=== PATIENT | female | born 1980 | race Caucasian/White ===

== ENCOUNTER → 2019-05-06 12:57 | Outpatient (CLI) | payer OTHER, SELFPAY ==
--- NOTE | 2019-05-06 | DI.CT.S_ITS ---
PROCEDURE: CT ABDOMEN PELVIS W CON INDICATIONS: Right lower quadrant pain TECHNIQUE: After the administration of oral and intravenous contrast, 5 mm thick sections acquired from the diaphragms to the symphysis. 5 mm thick coronal and sagittal reformats were performed. For radiation dose reduction, the following was used: automated exposure control, adjustment of mA and/or kV according to patient size. COMPARISON: [facility], , RENAL AND/OR RETOPERITONEAL/PELVIC, 05/23/2005, 9:47. FINDINGS: Image quality: Diagnostic. ABDOMEN: Lung bases: Lung bases are clear. Heart size is normal. Solid organs: Subcentimeter foci of low attenuation are seen along the superior margin of the left hepatic lobe just underlying the diaphragm, which are too small to adequately characterize, but most likely represent simple cysts. The liver is otherwise unremarkable with the exception of slight hypodensity when compared to the spleen. The spleen is within normal limits. The adrenals and kidneys are essentially unremarkable. No hydronephrosis is identified. There may be an extrarenal pelvis on the right. Small right parenchymal renal cysts are incidentally noted. No definite solid renal lesion is evident. The pancreas is within normal limits. Peritoneum and bowel: The stomach is unremarkable. The small bowel loops are nondilated. A moderate to large amount of residual stool is identified within the colon. Colon is not well evaluated on this examination related to patchy areas of colonic decompression. What is felt to represent the appendix is noted to be enlarged and measures up to approximately 10 mm in diameter (image 58, series 2). A small fluid collection at the base of the appendix is located adjacent to the cecum is present that measures up to approximately 1.3 cm in diameter (image 65, series 2). This fluid collection is separate from the right ovary, which is noted to be positioned significantly more posterior. There is edema within the mesentery adjacent to the appendix. Small reactive lymph nodes are identified. Nodes and vessels: No retroperitoneal or mesenteric adenopathy. Aorta and inferior vena cava are normal in caliber. Bones: No acute fractures suspicious osseous lesion is evident. PELVIS: Genitourinary: Bladder wall thickness is normal. The uterus is slightly prominent in size. The left ovary is normal in size. The right ovary is borderline prominent, which appears to be related to a peripherally enhancing collapsing right ovarian cyst/follicle that measures up to 1.6 cm in diameter. A small amount of fluid is present adjacent to the right ovary. Miscellaneous: No inguinal hernias or adenopathy. A small amount of free fluid is seen within the pelvis. There is no loculated fluid collection or free air. Bones: No suspicious bony lesions. No vertebral body compression fractures. IMPRESSION: 1. Findings are compatible with acute appendicitis. 2. Small fluid collection at the base of the appendix is suspicious for a small abscess, which could potentially be located within the lumen of the appendix. However, a small contained perforation is difficult to exclude. 2. Small amount of free fluid within the pelvis is likely reactive. There is no free air. 4. Collapsing right ovarian cyst/follicle. 5. Probable constipation. No bowel obstruction. 6. Questionable mild hepatic steatosis. Note: Acute pertinent findings were discussed with the Dr. Altamirano at approximately 1500 hours (PST) on 05/06/19. Dictated by: Jama Mao M.D. on 05/06/2019 at 13:31 Approved by: Jama Mao M.D. on 05/06/2019 at 14:02
[2019-05-06 13:57] LABS: Add Manual Diff / Slide Review NO; Basophils Absolute Auto 0 /uL (0-100); Basophils Percent Auto 0.5 % (0-2); Eosinophils Absolute Auto 200 /uL (0-450); Eosinophils Percent Auto 2.8 % (2-4); Hematocrit 31.6 % (36-46); Lymphocytes Absolute Auto 1400 /uL (1100-4500); Lymphocytes Percent Auto 19.3 % (25-40); Mean Corpuscular HGB Conc 31.7 % (30-36); Mean Corpuscular Hemoglobin 21.4 PG (26-34); Mean Corpuscular Volume 67.5 fL (80-100); Monocytes Absolute Auto 800 /uL (0-900); Monocytes Percent Auto 10.2 % (3-14); Neutrophils Absolute Auto 5000 /uL (1500-7000); Neutrophils Percent Auto 67.2 % (50-75); Platelet Count 294 X10^3/uL (150-400); Red Blood Cell Count 4.68 X10^6/uL (4.0-5.2); Red Cell Distribution Width 18.9 % (11.6-14.8); White Blood Cell Count 7.4 X10^3/uL (4.5-11.0)
[2019-05-06 14:12] LABS: Anisocytosis 1+; Poikilocytosis 1+
== END ==
PROVIDERS: PCP Family Medicine; Referring Provider Family Medicine; Visit Provider Family Medicine
DX: R10.31 Right lower quadrant pain (principal); N83.201 Unspecified ovarian cyst, right side; N28.1 Cyst of kidney, acquired
CPT/HCPCS: 36415; 74177; 85025; Q9967

== ENCOUNTER 2019-05-06 17:36 | Observation (INO) | payer OTHER, SELFPAY ==
[2019-05-06] VITALS (11 sets, daily range): BP systolic 112–136; BP diastolic 71–88; PULSE 70–89; RESP 10–21; TEMP 36.3–36.8; O2SAT 96–100; BMI 21.2
--- NOTE | 2019-05-06 | PATH_ITS ---
[facility] Accession Number: [id number] . 01 Material submitted: . appendix - APPENDIX . 01 Clinical history: . APPENDICITIS, SENT FROM PCP . 02 Diagnosis: Appendix, Appendectomy: Acute appendicitis and serositis with a small focus of mesothelial inclusion cysts at the appendiceal tip. . [facility] 05/09/2019 1211 Local . 02 Electronically signed: . Keturah Lowe MD, Pathologist NPI- [id number] . 01 Gross description: . Received in formalin, labeled appendix, is a piece of cecum (3.0 x 3.0 x 2.2 cm) with an attached intact appendix (length-6.2 cm, diameter-1.0 cm) with a stapled resection margin. The serosa is yost-skinner, smooth and dull, and focally covered in yost friable exudate. The cecal mucosa is skinner, smooth, shiny and unremarkable. The appendiceal lumen contains skinner paste-like material. The wall is up to 0.3 cm thick. No nodules, masses or lesions are identified. The resection margin is inked blue. Section code; (A1) resection margin, bilingual inside sales representative perpendicular section; (A2) appendix, bilingual inside sales representative serial sections; (A3) one-half of the bivalved tip. ([id number]) /MRV 05/08/2019 1243 Local . 02 Pathologist provided ICD-10: E03.9, K35.30 . 02 CPT . 299744 Performed at: 01 [facility] [address] [facility], [place], [place] [id number] MD Marco Antonio Black MD Phone: [phone] Performed at: 02 [facility] [place] [address] [place] [id number] MD Margo Michael MD Phone: [phone]
--- NOTE | 2019-05-06 15:57 | ED_ITS ---
HPI - General Adult General Chief complaint: Abdominal Pain Stated complaint: appendicitis, sent from pcp Time Seen by Provider: 05/06/19 15:54 Source: patient Mode of arrival: Ambulatory Limitations: no limitations History of Present Illness HPI narrative: 38-year-old otherwise healthy female here with a diagnosis of appendicitis. Patient states that since Sunday she has had right lower quadrant abdominal pain. No vaginal bleeding. No urinary symptoms. No change in her bowel habits. Some nausea but no vomiting. Had some chills yesterday but none today. States she actually feels better today than what she has a past couple days. Contacted her primary doctor who evaluated her in the emergency departme nt. Had an outpatient CBC which showed no leukocytosis. This was followed by a CT scan of the abdomen pelvis which is concerning for a acute appendicitis. She was sent to the emergency department. Related Data Home Medications Medication Instructions Recorded Confirmed levothyroxine See Rx Instructions .ROUTE .COMPLEX 05/06/19 05/06/19 Allergies Allergy/AdvReac Type Severity Reaction Status Date / Time No Known Allergies Allergy Verified 05/06/19 17:40 Review of Systems Constitutional Constitutional: Denies fever(s) and Denies headache(s) ENT Ears, Nose, Mouth, and Throat: Denies headache(s) Cardiovascular Cardiovascular: Denies chest pain and Denies dyspnea Respiratory Respiratory: Denies dyspnea Gastrointestinal Gastrointestinal: Reports abdominal pain, Reports nausea and Denies vomiting Genitourinary Genitourinary: Denies dysuria Musculoskeletal Musculoskeletal: Denies myalgias and Denies arthralgias Integumentary/Breasts Skin/Breast: Denies lesions and Denies rash Neurologic Neurologic: Denies behavioral changes and Denies headache(s) Psychiatric Psychiatric: Denies behavioral changes Hematologic/Lymphatic Hematologic/Lymphatic: Denies easy bleeding and Denies easy bruising Patient History Medical History Hypothyroid (Acute) Social History Smoking Status: Never smoker Exam Initial Vital Signs Initial Vital Signs: Vital Signs Temperature 98.3 F 05/06/19 16:09 Pulse Rate 88 05/06/19 16:09 Respiratory Rate 16 05/06/19 16:09 Blood Pressure 131/88 05/06/19 16:09 Pulse Oximetry 100 05/06/19 16:09 Const General: cooperative, comfortable, well developed and well groomed Limitations: mental status not altered HENMT Head: normal to inspection and normocephalic Resp Effort & Inspection: normal respiratory effort Auscultation: clear to auscultation bilaterally Cardio Rate: regular rate Rhythm: regular rhythm GI Palpation: soft and tender (Right lower quadrant) Skin Lesions: no lesions Rashes: no rashes Neuro General: alert and awake Extrem General: normal to inspection and capillary refill normal Scores GCS Raymundo coma scale eye opening: Spontaneous Harrison coma scale verbal response: Orientated Raymundo coma scale motor response: Obey commands Harrison coma scale total score: 15 Course Orders Ordered: ED Orders 05/06/19 16:35 Basic Metabolic Panel Stat Test Serum,Qual Stat 05/06/19 17:34 Consult to General Surgery Routine Sodium Chloride (Normal Saline 0.9%) 1,000 mls @ 125 mls/hr IV CONT OLIVIA Last Admin: 05/06/19 17:58 Dose: 125 mls/hr Documented by: YADIRA Morphine Sulfate (Morphine) 2 mg IV Q4HR PRN PRN Reason: Pain, Mild (1-3) Last Admin: 05/06/19 17:56 Dose: 2 mg Documented by: YADIRA Ondansetron HCl (Zofran) 4 mg IV Q4HR PRN PRN Reason: Nausea And Vomiting Last Admin: 05/06/19 17:57 Dose: 4 mg Documented by: YADIRA Discontinued Medications Piperacillin/Tazobactam/Dextrose (Zosyn) 3.375 gm in 50 mls @ 100 mls/hr IV NOW ONE Stop: 05/06/19 17:46 Last Infusion: 05/06/19 19:19 Dose: 0 mls/hr Documented by: Admin: 05/06/19 17:56 Dose: 100 mls/hr Documented by: CAMELIAONER Vital Signs Vital signs: Vital Signs - 8 hr 05/06/19 16:09 Temperature 98.3 F Pulse Rate 88 Respiratory Rate 16 Blood Pressure 131/88 Pulse Oximetry 100 Medical Decision Making Medical Records Medical records reviewed: Yes I reviewed the patient's medical records. Lab Data Lab results reviewed: Yes I reviewed the patient's lab results. Result diagrams: 05/06/19 16:35 Labs: Lab Results 05/06/19 05/06/19 Range/Units 16:35 16:35 Sodium 139 (137-145) mmol/L Potassium 3.8 (3.4-5.1) mmol/L Chloride 100 (98-107) mmol/L Carbon Dioxide 28 (22-32) mmol/L BUN 13 (7-17) mg/dL Creatinine 0.60 (0.52-1.04) mg/dL Estimated GFR > 60.0 (>60) mL/min BUN/Creatinine Ratio 21.7 (6-22) Glucose 107 H (70-100) mg/dL Calcium 9.5 (8.4-10.2) mg/dL Serum , Qual Negative (Negative) Imaging Data CT scan - abdomen/pelvis: Radiologist's Impression: [address] [address] [address] Scan Report Signed Patient: Meeta Grace LMR#: [id number] : 1980Acct:[id number] Age/Sex: 38 / FDate of Service: 05/06/19 Loc: CT Accession Number: [id number] Procedure: CT abdomen pelvis w con Ordering Provider: Sarahy Altamirano MD PROCEDURE: CT ABDOMEN PELVIS W CON INDICATIONS: Right lower quadrant pain TECHNIQUE: After the administration of oral and intravenous contrast, 5 mm thick sections acquired from the diaphragms to the symphysis. 5 mm thick coronal and sagittal reformats were performed. For radiation dose reduction, the following was used: automated exposure control, adjustment of mA and/or kV according to patient size. COMPARISON: [facility], , RENAL AND/OR RETOPERITONEAL/PELVIC, 05/23/2005, 9:47. FINDINGS: Image quality: Diagnostic. ABDOMEN: Lung bases: Lung bases are clear. Heart size is normal. Solid organs: Subcentimeter foci of low attenuation are seen along the superior margin of the left hepatic lobe just underlying the diaphragm, which are too small to adequately characterize, but most likely represent simple cysts. The liver is otherwise unremarkable with the exception of slight hypodensity when compared to the spleen. The spleen is within normal limits. The adrenals and kidneys are essentially unremarkable. No hydronephrosis is identified. There may be an extrarenal pelvis on the right. Small right parenchymal renal cysts are incidentally noted. No definite solid renal lesion is evident. The pancreas is within normal limits. Peritoneum and bowel: The stomach is unremarkable. The small bowel loops are nondilated. A moderate to large amount of residual stool is identified within the colon. Colon is not well evaluated on this examination related to patchy areas of colonic decompression. What is felt to represent the appendix is noted to be enlarged and measures up to approximately 10 mm in diameter (image 58, series 2). A small fluid collection at the base of the appendix is located adjacent to the cecum is present that measures up to approximately 1.3 cm in diameter (image 65, series 2). This fluid collection is separate from the right ovary, which is noted to be positioned significantly more posterior. There is edema within the mesentery adjacent to the appendix. Small reactive lymph nodes are identified. Nodes and vessels: No retroperitoneal or mesenteric adenopathy. Aorta and inferior vena cava are normal in caliber. Bones: No acute fractures suspicious osseous lesion is evident. PELVIS: Genitourinary: Bladder wall thickness is normal. The uterus is slightly prominent in size. The left ovary is normal in size. The right ovary is borderline prominent, which appears to be related to a peripherally enhancing collapsing right ovarian cyst/follicle that measures up to 1.6 cm in diameter. A small amount of fluid is present adjacent to the right ovary. Miscellaneous: No inguinal hernias or adenopathy. A small amount of free fluid is seen within the pelvis. There is no loculated fluid collection or free air. Bones: No suspicious bony lesions. No vertebral body compression fractures. IMPRESSION: 1. Findings are compatible with acute appendicitis. 2. Small fluid collection at the base of the appendix is suspicious for a small abscess, which could potentially be located within the lumen of the appendix. However, a small contained perforation is difficult to exclude. 2. Small amount of free fluid within the pelvis is likely reactive. There is no free air. 4. Collapsing right ovarian cyst/follicle. 5. Probable constipation. No bowel obstruction. 6. Questionable mild hepatic steatosis. Note: Acute pertinent findings were discussed with the Dr. Altamirano at approximately 1500 hours (PST) on 05/06/19. Dictated by: Jama Mao M.D. on 05/06/2019 at 13:31 Approved by: Jama Mao M.D. on 05/06/2019 at 14:02 [facility] Narrative Medical decision making narrative: CT scan included in this note is for reference purposes only. It was ordered by her primary provider. Discussed the case with Dr. Conrad with General surgery who stated we could admit the patient and she would come and see her with surgery scheduled later this evening. Discussed the plan the diagnosis of the patient. She expressed understanding and agreement. Discharge Plan Departure Patient Disposition: Admitted as Observation Clinical Impression: Acute appendicitis Qualifiers: Acute appendicitis type: with localized peritonitis Appendicitis gangrene pre sence: without gangrene Appendicitis perforation presence: without perforation Appendicitis abscess presence: without abscess Qualified Code(s): K35.30 - Acute appendicitis with localized peritonitis, without perforation or gangrene Admit Date/Time: 05/06/19 17:36 Admit Provider: Nakia Conrad
[2019-05-06 16:57] LABS: BUN Creatinine Ratio 21.7 (6-22); Blood Urea Nitrogen 13 mg/dL (7-17); Calcium 9.5 mg/dL (8.4-10.2); Carbon Dioxide 28 mmol/L (22-32); Estimated Glomerular Filt Rate > 60.0 mL/min (>60); Glucose 107 mg/dL (70-100); HEMOLYSIS < 15 (0-50); Potassium 3.8 mmol/L (3.4-5.1); Sodium 139 mmol/L (137-145)
[2019-05-06 17:01] LABS: Chloride 100 mmol/L (98-107)
[2019-05-06 17:07] LABS: Pregnancy Test Serum,Qual Negative (Negative)
[2019-05-06] MEDS: PIPERACILLIN-TAZO 3.375 GM/50 ML FROZ.PIGGY IV (17:56)
[2019-05-06] MEDS: MORPHINE 2 MG/ML INJ IV ×2 (17:56→23:43)
[2019-05-06] MEDS: ONDANSETRON 4 MG/2 ML INJ IV (17:57)
[2019-05-06] MEDS: SODIUM CHLORIDE 0.9% 1,000 ML 125 ML IV (17:58)
--- NOTE | 2019-05-06 18:59 | P.HP_ITS ---
History of Present Illness History of Present Illness Date Patient Seen: 05/06/19 Time Patient Seen: 18:59 Chief complaint: appendicitis, sent from pcp Narrative: This is a 38-year-old woman who started having periumbilical pain about 48 hours ago. She said when the pain started it was sort of an ache, and she had no appetite from Sunday on word. The pain became more severe and more focal in her lower abdomen and right lower quadrant. She had a fever on Sunday, but has gradually been feeling better over the last 24 hours or so. Today she went to see her primary doctor who ordered a CT scan which revealed appendicitis and a focal periappendiceal abscess. She denies dysuria, nausea, vomiting, diarrhea, constipation. ROS: Thirteen system review is otherwise negative other than as mentioned below and in HPI. PE: GENERAL: Alert, relatively comfortable. Appears stated age. Answers questions promptly and appropriately. Vital signs noted. HENT: Normocephalic, atraumatic. Hearing intact. Oral mucosa is pink and moist. EYES: Conjunctiva pink, sclera white, no periorbital swelling. CARDIOVASCULAR: Regular rate. No pedal edema. RESPIRATORY: Non-tachypneic, breathing comfortably on room air. GASTROINTESTINAL: Abdomen soft and non-distended; Focal TTP lower mid abddomen and RLQ GENITALURINARY: No flank tenderness. MUSCULOSKELETAL: Equal tone and mass bilaterally. SKIN: Warm, dry, soft, appropriate color for ethnicity. No other lesions, ra shes, or wounds. NEURO: Alert and Oriented X 3. No gross sensory deficits, or cognitive issues. PSYCH: Appropriate affect and mood. Patient History Medical History (Updated 05/06/19 @ 19:04 by Nakia Conrad MD) Hypothyroid (Acute) Family & Social History Safety & Behavioral: Feels Safe in Current Yes Environment Been Physically Hurt or No Threatened By a Person Tobacco & Substance use: Smoking Status Never smoker alcohol intake frequency holiday/special occasion Substance Use Type does not use Meds Home Medications and Allergies Home Medications Medication Instructions Recorded Confirmed Type levothyroxine See Rx Instructions .ROUTE .COMPLEX 05/06/19 05/06/19 History Allergies Allergy/AdvReac Type Severity Reaction Status Date / Time No Known Allergies Allergy Verified 05/06/19 17:40 Exam Vital Signs (past 8 hours): - 05/06/19 16:09 05/06/19 18:19 Temperature 98.3 F Pulse Rate 88 87 Respiratory Rate 16 Blood Pressure 131/88 Blood Pressure [Left Arm] 129/83 Pulse Oximetry 100 100 Oxygen Delivery Method Room Air Objective Imaging CT scan - abdomen: Radiologist's impression: [address] [address] [address] Scan Report Signed Patient: Meeta Grace LMR#: [id number] : 1980Acct:[id number] Age/Sex: 38 / FDate of Service: 05/06/19 Loc: CT Accession Number: [id number] Procedure: CT abdomen pelvis w con Ordering Provider: Sarahy Altamirano MD PROCEDURE: CT ABDOMEN PELVIS W CON INDICATIONS: Right lower quadrant pain TECHNIQUE: After the administration of oral and intravenous contrast, 5 mm thick sections acquired from the diaphragms to the symphysis. 5 mm thick coronal and sagittal reformats were performed. For radiation dose reduction, the following was used: automated exposure control, adjustment of mA and/or kV according to patient size. COMPARISON: [facility], , RENAL AND/OR RETOPERITONEAL/PELVIC, 05/23/2005, 9:47. FINDINGS: Image quality: Diagnostic. ABDOMEN: Lung bases: Lung bases are clear. Heart size is normal. Solid organs: Subcentimeter foci of low attenuation are seen along the superior margin of the left hepatic lobe just underlying the diaphragm, which are too small to adequately characterize, but most likely represent simple cysts. The liver is otherwise unremarkable with the exception of slight hypodensity when compared to the spleen. The spleen is within normal limits. The adrenals and kidneys are essentially unremarkable. No hydronephrosis is identified. There may be an extrarenal pelvis on the right. Small right parenchymal renal cysts are incidentally noted. No definite solid renal lesion is evident. The pancreas is within normal limits. Peritoneum and bowel: The stomach is unremarkable. The small bowel loops are nondilated. A moderate to large amount of residual stool is identified within the colon. Colon is not well evaluated on this examination related to patchy areas of colonic decompression. What is felt to represent the appendix is noted to be enlarged and measures up to approximately 10 mm in diameter (image 58, series 2). A small fluid collection at the base of the appendix is located adjacent to the cecum is present that measures up to approximately 1.3 cm in diameter (image 65, series 2). This fluid collection is separate from the right ovary, which is noted to be positioned significantly more posterior. There is edema within the mesentery adjacent to the appendix. Small reactive lymph nodes are identified. Nodes and vessels: No retroperitoneal or mesenteric adenopathy. Aorta and inferior vena cava are normal in caliber. Bones: No acute fractures suspicious osseous lesion is evident. PELVIS: Genitourinary: Bladder wall thickness is normal. The uterus is slightly prominent in size. The left ovary is normal in size. The right ovary is borderline prominent, which appears to be related to a peripherally enhancing collapsing right ovarian cyst/follicle that measures up to 1.6 cm in diameter. A small amount of fluid is present adjacent to the right ovary. Miscellaneous: No inguinal hernias or adenopathy. A small amount of free fluid is seen within the pelvis. There is no loculated fluid collection or free air. Bones: No suspicious bony lesions. No vertebral body compression fractures. IMPRESSION: 1. Findings are compatible with acute appendicitis. 2. Small fluid collection at the base of the appendix is suspicious for a small abscess, which could potentially be located within the lumen of the appendix. However, a small contained perforation is difficult to exclude. 2. Small amount of free fluid within the pelvis is likely reactive. There is no free air. 4. Collapsing right ovarian cyst/follicle. 5. Probable constipation. No bowel obstruction. 6. Questionable mild hepatic steatosis. Note: Acute pertinent findings were discussed with the Dr. Altamirano at approximately 1500 hours (PST) on 05/06/19. Dictated by: Jama Mao M.D. on 05/06/2019 at 13:31 Approved by: Jama Mao M.D. on 05/06/2019 at 14:02 Labs Result Diagrams: 05/06/19 16:35 Labs: Laboratory Results - last 24 hr 05/06/19 05/06/19 16:35 16:35 Sodium 139 Potassium 3.8 Chloride 100 Carbon Dioxide 28 BUN 13 Creatinine 0.60 Estimated GFR > 60.0 BUN/Creatinine Ratio 21.7 Glucose 107 H Calcium 9.5 Serum , Qual Negative Assessment & Plan Assessment and plan (1) Hypothyroid: Current visit: Yes Status: Acute (2) Acute appendicitis: Qualifiers: Acute appendicitis type: with localized peritonitis Appendicitis abscess presence: without abscess Appendicitis gangrene presence: without ga ngrene Appendicitis perforation presence: without perforation Qualified Code(s): K35.30 - Acute appendicitis with localized peritonitis, without per foration or gangrene Current visit: Yes Status: Acute Assessment & Plan narrative: This is a 38-year-old woman with acute appendicitis. I discussed with the patient and her at length the risks and benefits of antibiotic treatment versus surgery. She may have a small abs cess around the appendix, which may necessitate drain placement. Risk of bleeding, infection, damage to nearby structures, need for additional procedures, need for open surgery, hernia formation, recurrence of abscess, anastomotic leak, risk of anesthesia were discussed. The patient desires to pro ceed with her appendectomy this evening. She had a handful of Sudanese fries around 2:30 p.m. today so we will likely plan on going to the operating room after 8:30 p.m. this evening. Plan: NPO IV fluid IV Zosyn Laparoscopic possible open appendectomy this evening Time Spent With Patient Time with patient: 25 - 35 minutes Quality VTE Deep Vein Thrombosis/Pulmonary Embolism Present on Admission: No
--- NOTE | 2019-05-06 19:36 | PC.NURSE ---
normal saline to continue in acute care
[2019-05-06] MEDS: ACETAMINOPHEN 325 MG TABLET 975 MG PO (20:32)
[2019-05-06] MEDS: GABAPENTIN 300 MG CAPSULE PO (20:33)
[2019-05-06] MEDS: SCOPOLAMINE 1 PATCH TOP (20:33)
[2019-05-06] MEDS: CELECOXIB 200 MG CAPSULE 400 MG PO (20:33)
[2019-05-06] MEDS: LACTATED RINGERS 1,000 ML 42 ML IV ×2 (20:35→22:10)
--- NOTE | 2019-05-06 21:54 | SUR.OPER ---
Supine on padded OR bed, head on pillow, left arm padded and tucked at side by surgeon, legs uncrossed, safety belt at thigh, tape over blanket over lower legs .
[2019-05-06] MEDS: BUPIVACAINE 0.25% W/ EPI 30 ML VIAL INJ (21:58)
--- NOTE | 2019-05-06 22:49 | PM.OP.1 ---
Operative Date/Time/Diagnoses Date of procedure: 05/06/19 Time of procedure: 22:49 Pre-op diagnosis: acute appendicitis Post-op diagnosis: same Procedure & Clinicians Procedure: laparoscopic appendectomy with partial cecectomy Same procedure as scheduled: Yes Indications: Acute appendicitis with enlarged base of appendix and distal cecum Surgeon: Nakia Conrad Click Yes if Unassisted: Yes Anesthesia Type: General Operative Notes Findings: Thickened and dilated appendix, blood fluid present, no signs of perforation; thickened cecum at base of appendix Closure Type: primary Specimen(s): other (appendix and cuff of cecum) Estimated Blood Loss (mL): 2 Blood products transfused: none Procedure in detail: The patient was brought into the operating room and placed supine on the OR table. Sequential compression devices were placed on both legs and turned on. Appropriate perioperative antibiotics were given prior to the start of surgery. General anesthesia was induced the patient was intubated. Ricardo catheter was placed in sterile fashion. The abdomen was prepped and draped in sterile fashion. Surgical time-out was conducted. Local anesthetic was injected under the skin just superior to the umbilicus and a 5 mm vertical incision was made at this site. The umbilical stalk was grasped with a Fco and elevated. A Veress needle was passed through the fascia into proper position. The position was tested with a saline drop test which was appropriate for intra-abdominal Veress needle placement. The abdomen was then insufflated in the usual fashion. Once insufflated to 15 mm Hg the Veress needle was removed and a 5 mm optical trocar was placed under direct vision using a 5 mm 30 degree scope. Once the camera was inside the abdomen I took a look around. There was no injury from port placement. Two additional ports were placed in a similar fashion in the suprapubic midline and left lower quadrant. The umbilical port was upsized to a 10-12 mm port. The patient was placed in Trendelenburg position with the right side up. The cecum was exposed and the appendix was seen diving posteriorly behind the cecum. There was some serosanguinous fluid around the cecum in the pelvis, but no pus, stool, or abscess. The appendix was grasped and elevated, it was thickened and dilated. There was no sign of perforation. There was a thick mesoappendix which was adherent to the distal ileum. Tedious dissection was undertaken to divided with good hemostasis. We did not have a LigaSure, so I used monopolar cautery and clips to ligate and divide the appendiceal artery. Once the appendix was well isolated I elevated it and palpated the cecum with an atraumatic bowel clamp. The cecum was quite thickened at the base of the appendix, with an area of about 2-3 cm which had a very thick and mass like quality. I was able to place a blue load stapler beyond this across the cecum, without interrupting the ileocecal valve or impinging on it. Two loads of a 60 mm blue load stapler were then used to staple across the cecum distal to this thickened area. Once the appendix and cuff of cecum were freed, the specimen was placed in an Endo-Catch bag and brought through the umbilical port and passed off the table for pathology. Attention was then turned back to the staple line on the cecum and clips on the mesoappendix. This staple line on the cecum was hemostatic, and the ileum was free and away from the staple line. There is no oozing or bleeding seen from the clipped vessels in the mesoappendix. Omentum was then brought down to cover the cecal staple line remaining mesoappendix. I took 1 final look around the abdomen. There was no welling up of blood or fluid. The bowel, cecum, and omentum were all in good position and looked well perfused and healthy. At this point the umbilical port site was closed with 0 Vicryl suture in the fascia using a Casey Munoz suture Passer. Then the abdomen was desufflated and 3-0 Vicryl and 4-0 Monocryl were used to close the skin. The remaining port sites were closed with 4 Monocryl in the skin. Each port site was sealed with Dermabond. Local anesthetic was given at each of the port sites and in the fascia. This concluded the procedure. At this point the needle sponge and instrument counts were correct. The Ricardo was removed and the appendix was passed off the table for pathology. Patient was awakened from anesthesia and extubated. The patient was transferred to the postanesthesia care unit in stable condition. Post-operative Condition: stable Disposition: PACU
--- NOTE | 2019-05-06 23:30 | SUR.PHASEI ---
Pt was transported to room 216 with family at bedside. Pt alert and oriented, vital signs stable, rates pain 2/10 with ice applied to puncture wounds. Bedside report given to LEEANNE Zuñiga. Pt in stable condition at time of transfer
[2019-05-07 00:25] VITALS: BP 123/72; PULSE 70; RESP 16; O2SAT 99
[2019-05-07 01:25] VITALS: BP 105/69; PULSE 68; RESP 16; O2SAT 96
[2019-05-07 02:25] VITALS: BP 111/65; PULSE 64; RESP 14; TEMP 36.7; O2SAT 97
--- NOTE | 2019-05-07 03:16 | PC.ADMIT ---
Addendum entered by Mary Chou R.N. 05/07/19 06:16: Dr. Conrad telephoned to make sure orders were adequate for Patient at 0000. Verbal order given via telephone to DC fluids if patient had adequate PO intake. Original Note: Safe hand off from [facility] PAC[facility]. Patient arrived via portable bed at 2323. VSS, lung sounds clear. Patient denies nausea. Patient has positive bowel tones in all 4 quadrants. Patient describes pain as a dull ache, 2-3/10. Lap sites intact w/dermabond. is at bedside. Patient was educated about the use of call light, bed is low and locked and bed alarm is on. [id number] [facility] Admission Note: The patient,Meeta Grace,38 y/o, was given written information regarding hospital policies, unit procedures and contact persons. Patient's smoking status: Never smoker. Vital Signs - 8 hr 05/06/19 19:53 05/06/19 22:50 05/06/19 22:55 Temperature 97.5 F L 98.3 F Pulse Rate 75 80 88 Respiratory Rate 16 21 16 Blood Pressure 128/77 116/79 112/79 Pulse Oximetry 96 100 100 05/06/19 22:59 05/06/19 23:05 05/06/19 23:10 Temperature Pulse Rate 81 81 89 Respiratory Rate 15 12 10 L Blood Pressure 112/76 115/77 122/78 Pulse Oximetry 100 100 100 05/06/19 23:14 05/06/19 23:20 05/06/19 23:55 Temperature 97.3 F L 97.9 F Pulse Rate 80 85 70 Respiratory Rate 13 14 16 Blood Pressure 118/74 136/71 114/72 Pulse Oximetry 100 100 100 05/07/19 00:25 05/07/19 01:25 05/07/19 02:25 Temperature 98.0 F Pulse Rate 70 68 64 Respiratory Rate 16 16 14 Blood Pressure 123/72 105/69 111/65 Pulse Oximetry 99 96 97
[2019-05-07 04:15] VITALS: BP 114/72; PULSE 78; RESP 16; TEMP 36.9; O2SAT 100
[2019-05-07] MEDS: MORPHINE 2 MG/ML INJ IV (04:38)
[2019-05-07] MEDS: SODIUM CHLORIDE 0.9% 1,000 ML 125 ML IV (04:39)
[2019-05-07] MEDS: ACETAMINOPHEN 325 MG TABLET 650 MG PO (06:04)
[2019-05-07 08:00] VITALS: BP 118/75; PULSE 73; RESP 16; TEMP 36.6; O2SAT 100
[2019-05-07] MEDS: DOCUSATE 100 MG CAPSULE PO (08:08)
[2019-05-07] MEDS: LEVOTHYROXINE 125 MCG TABLET PO (08:09)
[2019-05-07] MEDS: OXYCODONE IR 5 MG TABLET PO (08:13)
--- NOTE | 2019-05-07 12:01 | CM.DPC ---
DCP/Assessment: Reviewed chart. Patient is a 38yr old female admitted to [facility] with appendicitis. PCP listed is Sarahy Altamirano. Admitting surgeon is Dr. Conrad. Primary payor is 1)U[employer]. Attempted to meet briefly with patient this AM however, at time of visit patient had visitor. Patient discharging home today with no anticipated d/c planning needs. Patient completely I at baseline. P: Home with supportive family. FACUNDO Matta Discharge Planning/Care Management CM Discharge Assessment Start: 05/07/19 11:58 Freq: Status: Active Protocol: Document 05/07/19 11:59 KJS (Rec: 05/07/19 12:00 KJS [id number]) Discharge Planning Assessment Assigned Project Superintendent FACUNDO Matta Contact Information Alex Grace (spouse) ph# [phone] Advance Directives? No History Provided By Patient,Medical Record Has Patient been admitted in last 30 No days? Prior Living Arrangements House Household Members spouse,children Type of transporation used prior to Drives own vehicle admit Independent with ADL's Yes Is patient alert and oriented? Yes Caregiver for Another Yes: Family and minor children Barriers to Discharge No Discharge Plan Home Referrals Initiated None needed Whiteboard Updated in Patient Room with No name and ext. # of Project Superintendent Review Status In Process Next Review Type Continued Stay Review
== END 2019-05-07 11:45 | disposition home or self-care (01) ==
LOC: AC 20:36 → OR 21:01
PROVIDERS: Admitting Provider Surgery; PCP Family Medicine; Referring Provider Emergency Medicine; Visit Provider Surgery
PROC: 0DTJ4ZZ Resection of Appendix, Percutaneous Endoscopic Approach (ICD-10-PCS; CPT 44970; principal; 2019-05-06 21:05)
DX: K35.30 Acute appendicitis with localized peritonitis, without perforation or gangrene (principal); R10.31 Right lower quadrant pain; N83.201 Unspecified ovarian cyst, right side; N28.1 Cyst of kidney, acquired; K38.8 Other specified diseases of appendix
CPT/HCPCS: 44970; 36415; 74177; 80048; 84703; 85025; 96361; 96365; 96375; 96376; 99220; 99284; G0378; J0330; J1100; J1885; J2250; J2270; J2405; J2543; J2704; Q9967

== ENCOUNTER → 2022-06-01 11:15 | Outpatient (CLI) | payer OTHER, SELFPAY ==
[2019-05-06 19:26] VITALS: BMI 21.2
--- NOTE | 2022-06-01 | DI.US.S_ITS ---
PROCEDURE: US THYROID INDICATIONS: Localized swelling, mass and lump, neck TECHNIQUE: Real-time scanning was performed of the thyroid gland, with image documentation. COMPARISON: None. FINDINGS: Right: Thyroid lobe measures 4.1 x 1.2 x 1.0 cm, and is homogeneous in echotexture. Left: Thyroid lobe measures 4.5 x 1.1 x 1.4 cm, and is homogenous in echotexture. Isthmus: 4 mm thick. IMPRESSION: Unremarkable ultrasound examination of thyroid gland. No thyroid nodule. No neck soft tissue lymphadenopathy. ACR TI-RADS definitions and recommendations: TI-RADS 1 (benign): 0 points. FNA not needed. TI-RADS 2 (not suspicious): 2 points. FNA not needed. TI-RADS 3 (mildly suspicious): 3 points. * FNA if 2.5 cm or larger, follow up if 1.5 cm or larger (at 1, 3, and 5 years). TI-RADS 4 (moderately suspicious): 4-6 points. * FNA if 1.5 cm or larger, follow up if 1 cm or larger (at 1, 2, 3, and 5 years). TI-RADS 5 (highly suspicious): 7 points or more. * FNA if 1 cm or larger, follow up if 0.5 cm or larger (every year for 5 years). Dictated by: Loc Stewart M.D. on 06/01/2022 at 12:22 Approved by: Loc Stewart M.D. on 06/01/2022 at 12:23
== END ==
PROVIDERS: PCP Physician Assistant; Referring Provider Physician Assistant; Visit Provider Physician Assistant
DX: E03.9 Hypothyroidism, unspecified (principal); R22.1 Localized swelling, mass and lump, neck
CPT/HCPCS: 76536

== ENCOUNTER → 2022-07-24 08:41 | Outpatient (CLI) | payer OTHER, SELFPAY ==
[2019-05-06 19:26] VITALS: BMI 21.2
--- NOTE | 2022-07-24 | DI.RAD.S_ITS ---
PROCEDURE: FL BARIUM SWALLOW INDICATIONS: Other somatoform disorders COMPARISON: None. FINDINGS: Function: There is normal esophageal peristalsis. No elicited gastroesophageal reflux. There is normal transit of a calibrated barium tablet through the esophagus into the stomach. Morphology: Air-contrast images demonstrate normal mucosal morphology. Single contrast views show no esophageal strictures, extrinsic mass effects, or diverticula. Limited images of the stomach demonstrate normal appearance. IMPRESSION: Normal esophagram. Dictated by: José Antonio Betts M.D. on 07/24/2022 at 11:02 Approved by: José Antonio Betts M.D. on 07/24/2022 at 11:03
== END ==
PROVIDERS: PCP Physician Assistant; Referring Provider Internal Medicine Gastroenterology; Visit Provider Internal Medicine Gastroenterology
DX: F45.8 Other somatoform disorders (principal)
CPT/HCPCS: 74220

== ENCOUNTER → 2024-01-25 15:17 | Outpatient (CLI) | payer OTHER, SELFPAY ==
[2019-05-06 19:26] VITALS: BMI 21.2
--- NOTE | 2024-01-25 | DI.US.S_ITS ---
PROCEDURE: US PELVIC COMPLETE INDICATIONS: IUD CHECK TECHNIQUE: Real-time scanning was performed of the pelvic organs, with image documentation. COMPARISON: None. FINDINGS: Uterus: Uterus is anteverted and normal in size at 11.1 x 5.1 x 7.2 cm. The myometrium is homogeneous. The endometrium measures 4.8 mm combined thickness. Intrauterine device within the endometrial body region. Ovaries: The right ovary measures 2.2 x 1.8 x 2.4 cm, with a calculated ovarian volume of 5.1 cc. The right ovary is normal in appearance. Cyst is seen in the left adnexa measuring 2.8 x 2.1 x 2.1 cm, may represent ovarian versus adnexal cyst. No definite ovarian tissue is seen. Other: No pathologic free abdominal or pelvic fluid. IMPRESSION: Intrauterine device within the endometrium. Left ovary is not definitively seen. Cyst in the left axilla measuring 2.8 cm, may represent ovarian versus adnexal cyst. Right ovary is normal in appearance. We strive to produce accurate, complete, and clear reports of imaging services. To assist us in improving patient care, this report was composed using standard report templates and voice recognition software. Therefore, it may contain abnormal punctuation, insertions and/or omissions. Occasional wrong-word or sound-alike substitutions may occur. Though we review the report and make efforts to correct it, we do recommend that the report be read carefully in proper context to recognize any text inaccuracies. Dictated by: Gino Rasheed M.D. on 01/25/2024 at 16:25 Approved by: Gino Rasheed M.D. on 01/25/2024 at 16:30
== END ==
PROVIDERS: PCP Physician Assistant; Referring Provider Obstetrics & Gynecology; Visit Provider Obstetrics & Gynecology
DX: Z30.431 Encounter for routine checking of intrauterine contraceptive device (principal); N94.89 Other specified conditions associated with female genital organs and menstrual cycle
CPT/HCPCS: 76856